=== PATIENT | female | born 1965 | race Caucasian/White ===

== ENCOUNTER → 2022-09-13 13:12 | Outpatient (CLI) | payer BC, SELFPAY ==
--- NOTE | 2022-09-13 13:18 | XR_ITS ---
FINAL REPORT CLINICAL HISTORY: low back pain..thoracic pain FINDINGS: Thoracic spine, two-view The vertebrae are normal height. Alignment is normal. Mild multilevel degenerative disease. Soft tissues are unremarkable. IMPRESSION: No acute process. Lumbar spine, five view The vertebrae are normal height. Alignment is normal. Disc spaces are preserved. Soft tissues are unremarkable. IMPRESSION: No acute process. Reviewed, Interpreted and Dictated by Anum Church MD Transcribed by David John Authenticated and [facility]
== END ==
LOC: RAD 13:15
PROVIDERS: PCP Internal Medicine Adolescent Medicine; Visit Provider Internal Medicine Adolescent Medicine
DX: Z12.31 Encounter for screening mammogram for malignant neoplasm of breast (principal); M54.6 Pain in thoracic spine; M54.50 Low back pain, unspecified
CPT/HCPCS: 72084

== ENCOUNTER 2023-11-29 13:20 | Outpatient (CLI) | payer BC, SELFPAY ==
--- OUTSIDE RECORDS SUMMARY | 2023-11-29 13:23 | XMS_ITS | Patient Health Record ---
Author Name Unknown Organization [facility] D SHANNAN Address [address] [place] [address] Care Team Providers Care [employer] Name Role Phone Markell Syed Primary Care Provider [phone] Gonsales Unavailable Unavailable ALLERGIES No Known Allergies REASON FOR REFERRAL No Information MEDICATIONS Medication SIG (Take, Route, Frequency, Duration) Notes Start Date End Date Status multivitamin Multiple Vitamins 1 tab(s) orally once a day Active SOCIAL HISTORY Tobacco Use: Social History Observation Description Date Details (start date - stop date) Never Smoker NA - NA Sex Assigned At : Social History Observation Description Sex Assigned At Unknown Smoking: Question Answer Notes Are you a: nonsmoker PLAN OF TREATMENT Pending Test Test Name Order Date X ray : Spines, Lumbosacral 07/29/2022 Mammogram : Bilateral 07/29/2022 Insurance Providers Payer Name Payer Address Payer Phone Subscriber Number Group Number Insured Name Patient Relationship to Insured Coverage Start Date Coverage End Date [employer] [address] [place] [address] [id number] Kellie Knox Self - patient is the insured MEDICAL (GENERAL) HISTORY Medical History History ICD Code hypoglycemia
[2023-11-29 14:22] LABS: Blood Urea Nitrogen 18 mg/dl (7-17); Estimated Glomerular Filt Rate 74 ml/min (>60); GFR (African American) 89 ML/MIN (>60)
== END 2023-11-29 23:59 | disposition home or self-care (01) ==
PROVIDERS: PCP Internal Medicine Adolescent Medicine; Visit Provider Surgery
DX: R22.31 Localized swelling, mass and lump, right upper limb (principal)
CPT/HCPCS: 36415; 82565; 84520

== ENCOUNTER 2023-12-01 07:56 | Outpatient (CLI) | payer BC, SELFPAY ==
--- NOTE | 2023-12-01 07:57 | MR_ITS ---
FINAL REPORT CLINICAL HISTORY: mass on right shoulder. lateral and posterior COMPARISON: None FINDINGS: Multiplanar MR imaging of the right shoulder was performed without contrast. The tendons of the rotator cuff are intact without evidence of rotator cuff tear. There is mild AC joint arthrosis. A small amount of fluid is seen in the subacromial/subdeltoid bursa. The glenoid labrum is intact. The long head of the biceps tendon is intact. No significant glenohumeral joint effusion is seen. There is no evidence of fracture or dislocation. The musculature is intact. There is prominent subcutaneous fat in the posterior aspect of the shoulder with mass effect on the posterior deltoid. This may represent a poorly defined lipoma and measures up to approximately 10 cm. IMPRESSION: Mass lateral posterior shoulder may represent poorly defined lipoma. Reviewed, Interpreted and Dictated by Jason Ghotra III, MD Transcribed by Aneta Mckenzie Authenticated and . [facility]
== END 2023-12-01 23:59 | disposition home or self-care (01) ==
LOC: RAD 07:57
PROVIDERS: PCP Internal Medicine Adolescent Medicine; Visit Provider Surgery
DX: R22.31 Localized swelling, mass and lump, right upper limb (principal)
CPT/HCPCS: 73221

== ENCOUNTER 2024-04-12 15:01 | Outpatient (CLI) | payer BC, SELFPAY ==
[2024-04-12 16:59] LABS: Basophils % 0.6 % (0.1-2.0); Eosinophils # 0.1 K/mm3 (0.0-0.4); Eosinophils % 1.5 % (0.1-12.0); Hematocrit 44.2 % (37.0-47.0); Hemoglobin 14.7 g/dL (12.2-16.2); Lymphocytes % 29.2 % (10-50); Mean Corpuscular HGB Conc 33.2 g/dL (31.8-35.4); Mean Corpuscular Hemoglobin 29.7 pg (27.0-31.2); Mean Corpuscular Volume 89.5 fl (81-99); Mean Platelet Volume 7.8 fl (7.4-10.4); Monocytes # 0.4 K/mm3 (0.1-1.0); Monocytes % 5.1 % (1.7-9.3); Neutrophils # 4.4 K/mm3 (1.8-7.8); Neutrophils % 63.7 % (37.0-80.0); Platelet Count 262 K/mm3 (142-424); Red Blood Count 4.94 M/mm3 (4.20-5.40); Red Cell Distribution Width 13.2 % (11.5-17.5); White Blood Count 6.8 K/mm3 (4.8-10.8)
[2024-04-12 17:18] LABS: Alanine Aminotransferase 14 U/L (12-78); Albumin Level 4.5 g/dl (3.5-5.0); Albumin/Globulin Ratio 1.8 (1.1-1.8); Alkaline Phosphatase 60 U/L (38-126); Anion Gap 12.3 mEq/L (5-15); Aspartate Amino Transferase 28 U/L (14-36); Bilirubin,Total 1.1 mg/dl (0.2-1.3); Blood Urea Nitrogen 13 mg/dl (7-17); Calcium 9.9 mg/dl (8.4-10.2); Carbon Dioxide 26 mmol/L (22.0-30.0); Chloride 105 mmol/L (98-107); Estimated Glomerular Filt Rate 74 ml/min (>60); GFR (African American) 89 ML/MIN (>60); Globulin 2.5 g/dL (1.3-3.2); Glucose 142 mg/dl (74-100); Potassium 4.3 mmoL/L (3.5-5.1); Sodium 139 mmol/L (136-145)
[2024-04-12 17:34] LABS: 25-OH Vitamin D, Total 35.2 ng/mL (30-100)
[2024-04-12 17:36] LABS: Free T4 (Free Thyroxine) 1.39 ng/dl (0.78-2.19); HIV (1&2) Antibody Rapid NONREACTIVE (NONREACTIVE)
[2024-04-12 17:49] LABS: Thyroid Stimulating Hormone 0.94 uIU/mL (0.465-4.68)
[2024-04-12 18:09] LABS: Vitamin B12 > 1000 pg/mL (239-931)
[2024-04-12 18:35] LABS: Ferritin 27.9 ng/ml (11.1-264)
[2024-04-13 08:51] LABS: Thyroid Peroxidase Antibodies 10 IU/mL (0-34)
[2024-04-15 17:15] LABS: Thyroglobulin Level <1.0 IU/mL (0.0-0.9)
== END 2024-04-12 23:59 | disposition home or self-care (01) ==
LOC: RT 15:03
PROVIDERS: PCP Nurse Practitioner Family; Visit Provider Nurse Practitioner Family
DX: I49.3 Ventricular premature depolarization (principal); I49.9 Cardiac arrhythmia, unspecified; R01.1 Cardiac murmur, unspecified; R53.83 Other fatigue; Z68.27 Body mass index [BMI] 27.0-27.9, adult; Z11.4 Encounter for screening for human immunodeficiency virus [HIV]; Z11.59 Encounter for screening for other viral diseases
CPT/HCPCS: 80050; 80053; 82306; 82607; 82728; 84436; 84439; 84443; 84481; 85025; 86376; 86800; 87389; 87522; 87902; 93225; 93227

== ENCOUNTER 2024-05-02 09:20 | Outpatient (CLI) | payer BC, SELFPAY ==
--- NOTE | 2024-05-02 09:24 | MM_ITS ---
PROCEDURE INFORMATION: Exam: MG Bilateral Screening 3D Mammography Exam date and time: 05/02/2024 9:15 AM Age: 58 years old Clinical indication: Screening mammogram TECHNIQUE: Imaging protocol: Bilateral Screening tomosynthesis and 2D mammography including computer-aided detection (CAD) when performed. COMPARISON: No relevant prior studies available. FINDINGS: MAMMOGRAPHY: Breast composition: There are scattered areas of fibroglandular density. Mass: None. Architectural distortion: No new or suspicious architectural distortion. Calcifications: No new or suspicious calcifications are present Asymmetric density: No new or suspicious asymmetric density is present Skin thickening: None. Axillary adenopathy: None. IMPRESSION: No mammographic evidence of malignancy. Recommend annual screening mammography unless otherwise clinically indicated. ASSESSMENT: BI-RADS category 1: Negative.
--- NOTE | 2024-05-02 09:24 | XR_ITS ---
FINAL REPORT TECHNIQUE: Bone mineral density was calculated of the lumbar spine and hip. CLINICAL HISTORY: OSTEOPOROSIS COMPARISON: None FINDINGS: Using L1-4, the bone mineral density of the spine is 0.833 g/cm2, corresponding to T-score of -1.9. Using the left hip, the bone mineral density of the femoral neck is 0.744 g/cm2, corresponding to a T-score of -1.6. Using the right hip, the bone mineral density of the femoral neck is 0.686 g/cm?, corresponding to a T-score of -1.5. NOTE: T-score: Standard deviation compared with peak bone mass of young adult mean. *Following the recommendations of the International Society of Bone densitometry, classification of hip BMD is based on the lower of two T-scores; total hip or femoral neck. IMPRESSION: Diminished bone mineral density of the lumbar spine and bilateral hips consistent with low bone density. Reviewed, Interpreted and Dictated by Jason Ghotra III, MD Transcribed by Lucia Hess Authenticated and [facility]
== END 2024-05-02 23:59 | disposition home or self-care (01) ==
PROVIDERS: PCP Nurse Practitioner Family; Visit Provider Nurse Practitioner Family
DX: M81.0 Age-related osteoporosis without current pathological fracture (principal); Z12.31 Encounter for screening mammogram for malignant neoplasm of breast
CPT/HCPCS: 77063; 77067; 77080

== ENCOUNTER 2024-05-03 08:22 | Outpatient (CLI) | payer BC, SELFPAY ==
--- NOTE | 2024-05-03 | CA_ITS ---
APPROVED REPORT Exam: Exercise Treadmill Technologist: Olga Sosa Ht: 5 ft 5 in Wt: 165 lbs BSA: 1.82 m2 HR: 77 bpm BP: 139/94 mmHg Rhythm: Nsr, borderline R atrial enlargement, NS ST abns Medical History Allergies: No known drug allergies Cardiac Risk Factors: FHX of CAD Stress Test Details Test: Exercise stress testing was performed using a modified Josh protocol. HR Resting HR: 77 bpm Max Heart Rate (APMHR): 163 bpm Max HR Achieved: 156 bpm Target HR (85% APMHR): 139 bpm % of APMHR: 96 Recovery HR: 97 bpm BP Resting BP: 139.0/94.0 mmHg Max BP: 184.0/86.0 mmHg Recovery BP: 131.0/81.0 mmHg ECG Stress ECG Conclusion Pt exercised 8:59 on Josh protocol Max HR: 156 % of PM: 95% Max BP: 184/86 Mets: 10.3 Test stopped due to: soa, fatigue Pt had palpitations No cp Occ PVC and fusion beats, one vent couplet Within normal ST response to exercise Normal GXT GXT only (no imaging) Electronically signed by : Joselin Rivera MD 05/06/2024 01:38:14
--- NOTE | 2024-05-03 08:25 | CA_ITS ---
APPROVED REPORT EXAM: Comprehensive 2D, Doppler, and color-flow Echocardiogram Sample Clerk: Tejal Barriga RDCS Ht: 5 ft 5 in Wt: 165lbs BSA: 1.82 BP: 119/80 mmHg Indications: PALPS M-Mode Dimensions RVDd 2.52 cm (0.9-2.6) LA Diam 2.68 cm (1.9-4.0) LVDd 3.65 cm (3.5-5.7) LVDs 2.40 cm (3.5-5.7) IVSd 0.98 cm (0.6-1.1) PWd 0.86 cm (0.6-1.1) EF (Teich) 64.10% FS 34.20% EDV (Teich) 56.30 mL TAPSE 2.69 (<1.7) ESV (Teich) 20.20 mL LV Diastology E Decel Time 167 (160-240 msec) E/A Ratio 1.1 Mitral Valve MV E Max Zacarias. 58.0 (40-130 cm/s) MV A Velocity 52.0 (40-130 cm/s) E/A Ratio 1.13 MV PHT 49.0 ms Tricuspid Valve TR P. Velocity 236.00 cm/s RAP Estimate 10.00 mmHg RVSP 32.40 mmHg Left Ventricle The left ventricle is normal size. The left ventricular systolic function is normal. The left ventricular ejection fraction is within the normal range. There is normal left ventricular wall thickness. There is normal LV segmental wall motion. The left ventricular diastolic function is normal. LVEF is 55%. Right Ventricle The right ventricle is normal size. The right ventricular systolic function is normal. Atria The left atrium size is normal. The right atrium is mildly dilated. There is no Doppler evidence of interatrial shunt. Aortic Valve The aortic valve is trileaflet. The aortic valve opens well. There is no aortic valvular stenosis. No aortic regurgitation is present. Mitral Valve The mitral valve is normal in structure. No evidence of mitral valve stenosis. Trace mitral valve regurgitation noted. Tricuspid Valve The tricuspid valve leaflets are thin and pliable. Mild tricuspid regurgitation. RVSP is 25-30 mmHg. Pulmonic Valve The pulmonary valve is normal in structure. Mild pulmonic regurgitation. Great Vessels The aortic root is normal in size. The ascending aorta is normal in size. IVC is normal in size and collapses >50% with inspiration. Pericardium There is no pericardial effusion. Other Information Study Quality: Adequate Conclusion Normal biventricular systolic function. Mild RA dilation. Mild TR, mild PI. Electronically signed by : Joselin Rivera MD 05/13/2024 12:53:00
== END 2024-05-03 23:59 | disposition home or self-care (01) ==
LOC: RT 08:23
PROVIDERS: PCP Nurse Practitioner Family; Visit Provider Physician Assistant
DX: Z01.818 Encounter for other preprocedural examination (principal); I51.7 Cardiomegaly; I49.3 Ventricular premature depolarization; R00.2 Palpitations; R53.83 Other fatigue
CPT/HCPCS: 93017; 93018; 93306

== ENCOUNTER 2024-09-18 12:25 | Outpatient (CLI) | payer BC, SELFPAY ==
[2024-09-18 12:53] LABS: Basophils # 0.1 K/mm3 (0-0.2); Basophils % 0.9 % (0.1-2.0); Eosinophils # 0.2 K/mm3 (0.0-0.4); Eosinophils % 2.3 % (0.1-12.0); Hematocrit 40.7 % (37.0-47.0); Hemoglobin 13.7 g/dL (12.2-16.2); Lymphocytes # 3.1 K/mm3 (0.7-4.5); Lymphocytes % 43.5 % (10-50); Mean Corpuscular HGB Conc 33.7 g/dL (31.8-35.4); Mean Corpuscular Hemoglobin 29.7 pg (27.0-31.2); Mean Corpuscular Volume 88.1 fl (81-99); Monocytes # 0.5 K/mm3 (0.1-1.0); Neutrophils # 3.3 K/mm3 (1.8-7.8); Neutrophils % 46.2 % (37.0-80.0); Platelet Count 264 K/mm3 (142-424); Red Blood Count 4.62 M/mm3 (4.20-5.40); Red Cell Distribution Width 12.4 % (11.5-17.5); White Blood Count 7.1 K/mm3 (4.8-10.8)
[2024-09-18 13:00] LABS: Chloride 102 mmol/L (98-107); Sodium 137 mmol/L (136-145)
[2024-09-18 13:01] LABS: Potassium 4.3 mmoL/L (3.5-5.1)
[2024-09-18 13:03] LABS: Blood Urea Nitrogen 13 mg/dl (7-17); Estimated Glomerular Filt Rate 86 ml/min (>60); GFR (African American) 104 ML/MIN (>60)
[2024-09-18 13:04] LABS: Anion Gap 12.3 mEq/L (5-15); Calcium 9.7 mg/dl (8.4-10.2); Carbon Dioxide 27 mmol/L (22.0-30.0); Glucose 92 mg/dl (74-100)
== END 2024-09-18 23:59 | disposition home or self-care (01) ==
LOC: PREOP 12:25
PROVIDERS: PCP Nurse Practitioner Family; Visit Provider Surgery
DX: D17.9 Benign lipomatous neoplasm, unspecified (principal)
CPT/HCPCS: 80048; 85025

== ENCOUNTER 2024-09-23 06:02 | Day surgery (SDC) | payer BC, SELFPAY ==
[2024-09-18 12:51] VITALS: BMI 27.4
[2024-09-23] VITALS (10 sets, daily range): BP systolic 123–153; BP diastolic 70–91; PULSE 69–81; RESP 14–20; TEMP 36.2–36.6; O2SAT 97–99
[2024-09-23] MEDS: LACTATED RINGERS 1000ML 1,000 ML 25 ML IV (06:21)
--- NOTE | 2024-09-23 06:48 | EXP.ANES.CKL ---
[facility] Disclaimer: The information contained in this section may have been updated after the patient was seen, as this information can be updated by other users. Medical History Pre-op testing Palpitations PVC (premature ventricular contraction) PAC (premature atrial contraction) Hypoglycemia Surgical History Hx of tonsillectomy H/O tubal ligation Family History Sister No problems noted. Mother Cancer Other Family history of heart disease Social History Smoking Status: Never smoker alcohol intake: never substance use type: denies use current occupational status: employed Travel in the last 8 weeks: None Have you lived/traveled outside [place] in past 30 days?: No Contact w/someone who lives/traveled outside US past 30 days?: No Exposure to someone with infectious disease in past 14 days?: No Do you have a fever (greater than 100.4 F or 38 C)?: No Have you tested positive for COVID-19: No Exposed to someone with COVID-19 in past 14 days?: No Do you have a sore throat?: No Do you have a cough?: No Do you have any weakness?: No Do you have any diarrhea?: No Are you experiencing any unusual bleeding?: No Do you have any muscle aches/pain?: No Do you have any abdominal pain?: No Are you experiencing loss of taste or smell?: No [facility] Anesthesia Checklist Patient Identification Patient Identification: Arm Band and Family Structural Data Admitted From: Home Planned Operative Procedure/s: Excision lipoma right shoulder Consent for Planned Operative Procedure(s) Verified: Yes Verified Documents: Surgical Consent and History and Physical NPO Status Verified Time NPO: 00:00 Additional verifications Patient : No Anesthesia Reactions: No Hx Blood Transfusions: No Blood Transfusion Reaction: No Cephalosporin Allergy: No Previous Colonoscopy: No Airway Assessment Mallampati Score:: Class II C-Spine Mobility Assessed: Yes TMJ Mobility Assessed: Yes Neurological Assessment Level of Consciousness: Awake, Alert, Appropriate and Follows Commands Hx Seizures: No Numbness or tingling in extremities: No Anesthesia Plan Anesthesia Risk discussed: Yes ASA Class: II Anesthesia Type: General Preoperative Comments Pre-Operative Comments: History of low blood sugar.
[2024-09-23] MEDS: CEFAZOLIN SODIUM 1 GM in 0.9 % SODIUM CHLORIDE 50 ML IV (07:00)
[2024-09-23] MEDS: ROPIVACAINE 0.5% 30ML VIAL 150 MG (07:27)
[2024-09-23] MEDS: LIDOCAINE 1% 20ML MDV 20 ML (07:27)
--- NOTE | 2024-09-23 08:26 | P.OP_ITS ---
Date of procedure: 09/23/24 Pre-op Diagnosis:: Right posterior shoulder lipoma Post-op Diagnosis:: Same Procedure performed:: Excision of right posterior shoulder lipoma (excisional length 12.0 cm) with intermediate complexity closure Surgeon:: Jason Bejarano MD SUPERVISOR PAINTING:: David Harris Anesthesia: GETJohana Estimated blood loss (mL): 15 Clinical Note:: Patient presents for excision of lipoma from the shoulder. She was initially seen in the office on 11/02/2023 as a referral for lipoma on the shoulder right upper extremity area. She states that this has been present for years but has enlarged in size. She has some discomfort from the area. When she was seen in the office on 11/02/2023 she had what appeared to be a rather large subcutaneous soft tissue mass near the right posterior deltoid measuring about 10 x 8 cm with some prominent vascularity overlying the skin. Given its large size I had her undergo MRI to evaluate for atypical lipoma or liposarcoma. MRI revealed findings of prominent subcutaneous fat in the posterior aspect of the shoulder which was felt to represent poorly defined lipoma measuring approximately 10 cm. She wished to pursue surgery and was scheduled but then had to reschedule due to some cardiac testing. I did explain to her the potential need for close suction drain placement. I also explained to her that final pathology could reveal more concerning lesion with the potential for additional surgery although MRI is consistent with a lipoma. Operative findings:: She had a relatively well-circumscribed but lobulated fatty lesion consistent with lipoma. It measured 15 x 12 cm. Operative note:: Consent was obtained patient was taken the operating room. General anesthesia was induced. She was positioned in left lateral position. The area was prepped and draped in the standard surgical fashion. Boundaries of the palpable lesion were marked with a skin marker. Skin was marked with a skin marker for planned elliptical incision along skin lines. Elliptical incision was performed due to the likelihood of redundant overlying skin from the lesion stretching her skin over time. Skin incision was made. Careful dissection was carried down through full-thickness of the dermis and superficial subcutaneous tissues using electrocautery. Presumed lipomatous tissue was encountered. Careful dissection was carried out circumferentially dissecting this free from the overlying dermis and superficial subcutaneous tissues. Lipomatous tissue was relatively well- circumscribed but rather lobulated. Prolonged dissection was carried out circumferentially and down to the tissue plane overlying the deltoid muscle fascia. Ultimately the lesion in its entirety with the overlying attached skin ellipse was excised in its entirety. It measured 15 x 12 cm. It was marked for orientation with a long suture lateral and short suture superiorly. Wound was irrigated. Local anesthetic was infiltrated into the subfascial plane of the deltoid muscle into the surrounding subcutaneous tissues. Due to the free space a 7 mm DIANA drain was placed within the wound exit through separate site and secured to the skin with a 3-0 nylon horizontal mattress suture. There appeared to be good hemostasis. Deep dermal tissues were closed with multiple interrupted 2-0 Vicryl sutures. Skin was closed with 4-0 Monocryl in a running subcuticular fashion. Steri-Strips and dressing was applied. Condition: stable Disposition: PACU Complications:: None immediately apparent
--- NOTE | 2024-09-23 08:34 | P.PNANES_ITS ---
[facility] Anesthesia Record Part I Anesthesia Record I Intake, IV Amount: 650 Hydration: Adequate Estimated blood loss (mL): 15 Urine output (mL): 0 Blood Products used (#): none Blood Pressure: 147/91 SaO2: 98 Pulse Rate: 78 Airway Patency: Patent Respiratory Rate: 14 Temperature: 97.1 F Patient is:: Drowsy and Stable Stable to PACU at:: 08:29
--- NOTE | 2024-09-23 10:43 | P.PNANES_ITS ---
[facility] Anesthesia Record Part II Anesthesia Record Part II Discharge Time: 08:59 Destination: Surgical Day Care (OP Surgery) PACU nurse assessment reviewed?: Yes Patient Condition:: Good Anesthesia Complications:: None Swallowing reflex intact?: Yes Airway Patency: Patent Cyanosis?: No Blood Pressure: 129/79 SaO2: 99 Respiratory Rate: 16 Pulse Rate: 73 Temperature: 97.8 F Mental Status: Alert & Oriented Pain level:: 0 Nausea and/or vomitting:: None Intake, IV Amount: 0 Hydration: Adequate
== END 2024-09-23 09:33 | disposition home or self-care (01) ==
PROVIDERS: PCP Nurse Practitioner Family; Visit Provider Surgery
PROC: (CPT 11406; principal; 2024-09-23 07:30)
DX: D17.21 Benign lipomatous neoplasm of skin and subcutaneous tissue of right arm (principal)
CPT/HCPCS: 11406; 12034; 96374; J1100; J2250; J2405; J3010; J7120